=== PATIENT | female | born 1985 | race Two or more races ===

== ENCOUNTER 2019-09-30 16:42 | Emergency (ER) | payer MEDICAID ==
[~2019-09-30 16:42] MED LIST: IBUPROFEN600 MG PO; NKM
[2019-09-30] MEDS ORDERED: PROMETHAZINE-D118 ML ORAL (16:55)
[2019-09-30] MEDS ORDERED: ALBUTEROL SULF8.5 G1 INH (16:55)
[2019-09-30] MEDS ORDERED: TYLENOL EXTRA500 MG ORAL (16:55)
== END 2019-09-30 17:03 | disposition home or self-care (01) ==
DX: J06.9 Acute upper respiratory infection, unspecified (principal); B34.9 Viral infection, unspecified
CPT/HCPCS: 71045; Z7502